=== PATIENT | male | born 1950 | race Caucasian/White ===

== ENCOUNTER 2019-04-07 08:40 | Emergency (ER) | payer MEDICARE, SELFPAY ==
[2019-04-07 08:53] VITALS: BP 147/77; PULSE 77; RESP 20; TEMP 36.8; O2SAT 100
--- NOTE | 2019-04-07 09:04 | ED.GENADUL_ITS ---
Discharge Plan Disposition Patient Disposition: HOME Condition: Stable Discharge Details Chief Complaint: Nausea/Vomit/Diar Clinical Impression: Nausea and vomiting, Dehydration Primary Care Provider: Aquiles Roca ED Provider: Aquiles Alexander Home Meds and New Rx's Prescriptions: New ondansetron 4 mg tablet,disintegrating 4 mg PO TID PRN (Reason: nausea and vomiting) 5 Days Qty: 30 RF: 0 Continued multivitamin [Daily Multi-Vitamin] 1 EACH tablet 1 tab PO DAILY RF: 0 nifedipine 30 MG tablet extended release 24hr 30 mg PO DAILY RF: 0 meloxicam 7.5 MG tablet RF: 0 aspirin 81 MG tablet,chewable 81 mg PO DAILY RF: 0 atenolol 50 MG tablet 50 mg PO DAILY RF: 0 rosuvastatin [Crestor] 40 MG tablet 40 mg PO DAILY RF: 0 fish oil-dha-epa 1 EACH capsule 1 tab PO DAILY RF: 0 Discharge Instructions Instructions: Acute Nausea and Vomiting (ED) Additional Instructions: follow up with your primary care provider within a week. if you feel you are worsening, have new symptoms such as severe chest pain or persistent vomit return to the emergency department Medical Decision Making 68 yo male with hx of cad s/p cabg x3 per pt yeras ago, htn, who comes in with nasuea and vomit since Thursday. Denies fevers or new foods. he has also had intermittent general abdominal pain with cramping, denies pain now but does have some epigastric tenderness on exam. Denies chest pain or pressure but does have some mild shortness of breath, is speaking in full sentences with clear lungs. Also notes a mild frontal headache, no fevers or menigismus to suggest drug enforcement agent infection and not worst of his life and slowly has worsened so doubt sah. Given the n/v and headache will image to eval for sdh and evaluate for possible acs and sbo with las ekg and imaging and monitor. Has no evidence of dvt and no tachycardia or hypoxia so doubt pe and normal vascular exam without tearing back pain so doubt dissection labs unremarkable, he feels much better after zofran/ivf and no longer has a headache and is declining head ct at this time given it is gone and it was mild which I feel is reasonable given low suspicion for sdh or ich. Awaiting ct abd/pelvis, still has mild epigastric pain ct unremarkable per Dr. Shah, has a known aaa without rupture and he [facility] he is tolerating PO and feels better without abdominal pain. Feel he is stable for outpatient management, return precautions given Differential Diagnosis gastroenteritis, sbo, acs, sdh Medical Records Medical records reviewed: Yes I reviewed the patient's medical records. Imaging Data Radiologic Study: Attestation: I personally reviewed and interpreted this imaging study as follows: Imaging: CT Scan Radiologist's impression: no acute findings per Dr. Shah Radiologic Study #2: Attestation: I personally reviewed and interpreted this imaging study as follows: Imaging: X-Ray Radiologist's impression: Exam(s) a RAD:XR chest 2V PA & lateral SYMPTOMS/DIAGNOSIS: SHORT OF BREATH AP AND LATERAL CHEST: The lungs are free of infiltrate. There is no pleural effusion. The heart is not enlarged in this patient who is status post CABG. The hilar structures, mediastinum and tracheal air column are intact. SUMMARY: No evidence of acute cardiopulmonary disease. Ordered By: Aquiles Alexander M.D. CC: Dictated By: Alison Shah M.D. 04/07/19 1113 Lab Data Lab results reviewed: Yes I reviewed the patient's lab results. ECG Data Attestation: I personally reviewed and interpreted this ECG (s) as follows: Prior ECG tracings: not available for review Interpretation: sinus rhythm, rate of 60, pr 174, qtc 420 HPI General Mode of arrival: ambulatory . Date/Time Provider Initiated Documentation: 04/07/19 08:57 . Limitations to Documentation: no limitations . Information obtained by: patient . History of Present Illness 68 year old M presents to the emergency department with the chief complaint of n/v, described as moderate, Patient started experiencing this day(s) (3) and it has been constant. No relieving factors improve symptom(s), No exacerbating factors reported . Patient notes headaches. Patient did receive the following treatments prior to arrival, none Related Data Home Medications Medication Instructions Recorded Confirmed aspirin 81 mg PO DAILY 02/09/17 02/09/17 atenolol 50 mg PO DAILY 02/09/17 02/09/17 fish oil-dha-epa 1 tab PO DAILY 02/09/17 02/09/17 meloxicam 02/09/17 multivitamin [Daily Multi-Vitamin] 1 tab PO DAILY 02/09/17 02/09/17 nifedipine 30 mg PO DAILY 02/09/17 02/09/17 rosuvastatin [Crestor] 40 mg PO DAILY 02/09/17 02/09/17 ondansetron 4 mg PO TID PRN 5 Days #30 tab 04/07/19 Previous Rx's Medication Instructions Recorded ondansetron 4 mg PO TID PRN 5 Days #30 tab 04/07/19 Allergies Allergy/AdvReac Type Severity Reaction Status Date / Time Penicillins Allergy Intermediate Hives Unverified 02/09/17 12:51 oxycodone Allergy Unverified 02/09/17 12:51 General Stated Complaint: Nausea/Vomit/Diar YURI: 3 Review of Systems Review of Systems All systems reviewed & are unremarkable except as noted in HPI and below Constitutional Denies chills, Denies fever(s) and Denies weakness Cardiovascular Denies chest pain and Denies dyspnea Respiratory Denies cough and Denies dyspnea Genitourinary Denies dysuria Musculoskeletal Denies joint swelling Integumentary/Breasts Denies rash Neurologic Denies weakness PFSH Social History Do you feel safe in your relationship?: Yes Exam Const General: no acute distress Orientation: alert HENMT Head: normal to inspection Ears: external ears normal General nose exam: external nose normal Mouth: moist mucous membranes Eyes General: appearance normal, both eyes and all related structures Neck Neck: normal visual inspection Resp Effort & Inspection: normal respiratory effort and able to speak in complete sentences Cardio Rate: regular rate GI Palpation: soft Skin General skin exam: no rashes or lesions noted Neuro General: alert and oriented x3 Extrem General: normal to inspection Psych Mental Status: mental status grossly normal Course Vital Signs Temperature 36.8 C 04/07/19 08:53 Pulse 77 04/07/19 08:53 Respiratory Rate 20 04/07/19 08:53 Blood Pressure 147/77 H 04/07/19 08:53 Pulse Oximetry 100 04/07/19 08:53 Temperature 36.8 C 04/07/19 08:53 Temperature Source Skin 04/07/19 08:53 Pulse 77 04/07/19 08:53 Respiratory Rate 20 04/07/19 08:53 Blood Pressure 147/77 H 04/07/19 08:53 Blood Pressure Position Sitting 04/07/19 08:53 Pulse Oximetry 100 04/07/19 08:53 Oxygen Delivery Method Room Air 04/07/19 08:53 Oxygen Flow Rate 0 04/07/19 08:53 Pain Level 4 04/07/19 08:53
[2019-04-07 09:36] LABS: Abs Immature Grans 0.01 k/cumm (0.0-0.09); Absolute Basophil Count 0.02 k/cumm (0.0-0.2); Absolute Eosinophil Count 0.04 k/cumm (0.0-0.7); Absolute Lymphocyte Count 2.04 k/cumm (1.2-3.4); Basophils % 0.2; Eosinophils % 0.4; HCT 46.1 % (40.0-50.0); HGB 16.3 g/dL (13.5-17.5); Immature Grans % 0.1; Lymphocytes % 18.2; Mean Corp. HGB Concentration 35.4 g/dL (32.0-36.0); Mean Corpuscular Hemoglobin 31.7 pg (27.0-33.0); Mean Corpuscular Volume 89.7 fL (80-95); Mean Platelet Volume 10.6 fL (8.0-11.0); Monocytes % 6.3; Neutrophils % 74.8; Platelet Count 198 x1000/uL (130-400); RBC 5.14 m/cumm (4.50-6.00); RBC Distribution Width 13.2 % (11.8-14.1); White Blood Cell Count 11.19 k/cumm (4.4-10.8)
[2019-04-07 09:39] LABS: Absolute Neutrophil Count 8.37 k/cumm (1.2-6.7)
[2019-04-07 09:44] LABS: PTT Activated 22.7 sec (21.0-31.4); Prothrombin Time 9.5 sec (9.3-11.0)
[2019-04-07 09:54] LABS: ALT 25 U/L (12-78); AST 20 U/L (15-37); Albumin 3.9 g/dL (3.4-5.0); Alkaline Phosphatase 80 U/L (46-116); BUN 26 mg/dL (7-18); Bilirubin, Total 0.8 mg/dL (0.2-1.0); CREATININE 0.92 mg/dL (0.70-1.30); Calcium 9.7 mg/dL (8.5-10.1); Chloride 98 mmol/L (98-107); Glucose 118 mg/dL (70-100); Lipase 74 U/L (73-393); Potassium 4.1 mmol/L (3.5-5.1); Sodium 136 mmol/L (136-145); Total Protein 7.4 g/dL (6.4-8.2)
[2019-04-07 09:56] LABS: Troponin I < 0.02 ng/mL (0.00-0.06)
--- NOTE | 2019-04-07 11:10 | DI.RAD_ITS ---
SYMPTOMS/DIAGNOSIS: SHORT OF BREATH AP AND LATERAL CHEST: The lungs are free of infiltrate. There is no pleural effusion. The heart is not enlarged in this patient who is status post CABG. The hilar structures, mediastinum and tracheal air column are intact. SUMMARY: No evidence of acute cardiopulmonary disease.
--- NOTE | 2019-04-07 11:29 | DI.CT_ITS ---
SYMPTOMS/DIAGNOSIS: NAUSEA, VOMITING, ABD PAIN CT OF THE ABDOMEN AND PELVIS: The study was conducted according to the usual protocol with an intravenous administration of 100 cc's f Omnipaque 350. The lung bases are unremarkable. Multiple small cysts are identified in the liver. The gallbladder is intact. No gallstones are seen. There is no evidence of ductal dilatation. The pancreas and spleen are unremarkable. Bilateral renal cysts are demonstrated. There is no evidence of nephrolithiasis. There is no evidence of hydronephrosis. The adrenals are normal. There is no evidence of bowel obstruction. There is nothing to suggest an acute appendix. There is no evidence of free air or free fluid in the intraperitoneal space. The bladder is normal. There are calcifications in the prostate. The reproductive organs appear otherwise unremarkable. There are atherosclerotic changes involving the aorta with a maximal diameter of approximately 3.1 cm. Degenerative changes involving the lumbar spine are identified most advanced at L 4 - 5 and L 5 - S 1 where narrowed vacuum discs and prominent hypertrophic spurring are evident. SUMMARY: No evidence of an acute abdomen. Note is made of aneurysmal dilatation of the distal abdominal aorta with a maximal transverse diameter measuring up to approximately 3.1 - 3.2 cm.
[2019-04-07] MEDS: Omnipaque 350 MG/ML 100 ML BTL IJ (11:32)
[2019-04-07 12:10] VITALS: BP 142/68; PULSE 63; RESP 16; O2SAT 98
[2019-04-07 12:19] VITALS: BP 142/68; PULSE 63; RESP 16; TEMP 36.6; O2SAT 98
== END 2019-04-07 12:19 | disposition home or self-care (01) ==
PROVIDERS: Emergency Provider Emergency Medicine; PCP Internal Medicine
DX: R11.2 Nausea with vomiting, unspecified (principal); R10.13 Epigastric pain; R51 Headache; R06.02 Shortness of breath; E86.0 Dehydration; I10 Essential (primary) hypertension; Z95.1 Presence of aortocoronary bypass graft
CPT/HCPCS: 36415; 80053; 83690; 93005; 96360; 99285; 71046; 74177; 84484; 85025; 85610; 85730; 93010; J3490

== ENCOUNTER 2020-04-02 10:41 | Outpatient (CLI) | payer MEDICARE, SELFPAY ==
[2020-04-03 18:01] LABS: COVID-19 RT-PCR Result NEGATIVE (Negative)
== END 2020-04-02 11:01 ==
PROVIDERS: PCP Internal Medicine; Visit Provider Physician Assistant Medical
DX: Z03.818 Encounter for observation for suspected exposure to other biological agents ruled out (principal)
CPT/HCPCS: U0003

== ENCOUNTER 2022-02-11 11:14 | Emergency (ER) | payer MEDICARE, SELFPAY ==
[2022-02-11 11:36] VITALS: BP 140/68; PULSE 60; RESP 16; TEMP 36; O2SAT 98
--- NOTE | 2022-02-11 12:15 | RT.EKG_ITS ---
APPROVED REPORT Exam: Resting ECG Reason for Exam: abdominal pain Patient Location: E HR:55 bpm ECG Measurements Heart Rate 55 AXIS GA 172 P 34 QRSd 99 QRS 64 QT 407 T 44 QTc 389 Conclusion Sinus bradycardia...rate< 60. Sinus. Normal axis. No STEMI. No significant change from previous EKG. I have reviewed and interpreted ECG and agree with software generated interpretation.
--- NOTE | 2022-02-11 12:15 | DI.CT_ITS ---
Exam(s) CT ABDOMEN PELVIS W EXAM: CT ABDOMEN PELVIS W CLINICAL HISTORY: abdominal pain, persistent diarrhea, bladder ca TECHNIQUE: Imaging Protocol: Axial computed tomography images with coronal and sagittal reformatted images were created and reviewed CONTRAST MATERIAL: Intravenous: Omnipaque 350 Contrast volume:100 mL Oral: No COMPARISON: CT CT ABDOMEN PELVIS W from 04/07/2019 FINDINGS: The examination is limited due to patient motion artifact. ABDOMEN: Lung Bases: Normal where visualized. Liver: Normal density. Several hepatic cysts are present. No suspicious hepatic masses are seen. Portal, Superior Mesenteric, and Splenic Veins: Unremarkable. Gallbladder and Biliary Tract: No radiodense calculus or dilation. Pancreas: Normal density, no abnormal calcifications or inflammatory process. Spleen: Normal. Adrenals: No masses seen. Kidneys: Normal size, contour and axis. No radiodense stones or obstructive uropathy. Bilateral renal cysts are present. No follow-up is recommended. Abdominal Aorta: There is a stable 3.2 cm infrarenal abdominal aortic aneurysm. Atherosclerosis is p resent. Bowel: No obstruction or bowel wall thickening. No evidence of appendicitis. Peritoneal Cavity: No ascites, collection or mesenteric inflammatory response. No free air. Lymph Nodes: Within normal limits. Bones: Within normal limits for the patient's age. 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 Mild retrolisthesis of L4 on L5 is also noted. Soft Tissues: Unremarkable. PELVIS: Bladder: Symmetric distention, no gross wall thickening. Reproductive Organs: Unremarkable as visualized. Lymph Nodes: Within normal limits. Bones: Within normal limits for the patient's age. IMPRESSION: 1. No acute abdominal or pelvic process. 2. Results of this exam have been verbally communicated with provider. RADIATION DOSE DELIVERED: 1,021.1mGy.cm Total DLP DATA REPOSITORY: All CT scans at this facility are submitted to the National Radiology Data Registry (NRDR) Dose Index Registry (DIR) with the [employer] (A[employer]). RADIATION OPTIMIZATION: All CT scans at this facility use at least one of these dose optimization te chniques: automated exposure control; mA and/or kV adjustment per patient size (includes targeted exa ms where dose is matched to clinical indication); or iterative reconstruction.
[2022-02-11 12:40] LABS: Abs Immature Grans 0.01 10^3/uL (0.0-0.06); Absolute Basophil Count 0.04 10^3/uL (0.0-0.2); Absolute Eosinophil Count 0.45 10^3/uL (0.0-0.7); Absolute Lymphocyte Count 1.93 10^3/uL (1.2-3.4); Absolute Neutrophil Count 2.48 10^3/uL (1.2-6.7); Basophils % 0.7; Eosinophils % 7.9; HCT 43.6 % (40.0-50.0); HGB 14.5 g/dL (13.5-17.5); Immature Grans % 0.2; Lymphocytes % 33.8; MCH 31.3 pg (27.0-33.0); MCHC 33.3 % (32.0-36.0); MCV 94.2 fL (80-95); MPV 9.8 fL (8.0-11.0); Neutrophils % 43.4; Nucleated RBC 0 %; Platelet Count 210 10^3/uL (130-400); RBC 4.63 10^6/uL (4.36-5.78); RDW 13.2 % (11.8-14.1); WBC 5.71 10^3/uL (4.4-10.8)
[2022-02-11] MEDS: Ondansetron 4 MG/2 ML VIAL IVP (12:49)
[2022-02-11] MEDS: Lactated Ringers 1,000 ML 1000 ML IV (12:49)
[2022-02-11 12:57] LABS: Bilirubin Negative (Negative); Blood Trace-intact (Negative); Clarity Clear (Clear); Glucose Negative (Negative); Ketones Negative (Negative); Leukocyte Esterase Negative (Negative); Nitrite Negative (Negative); Specific Gravity >= 1.030 (1.005-1.025); Urobilinogen 0.2 EU/dL (Up TO 0.2); pH 5.5 (5-8)
[2022-02-11 13:00] LABS: ALT 50 U/L (16-63); AST 32 U/L (15-37); Albumin 3.4 g/dL (3.4-5.0); Alkaline Phosphatase 74 U/L (46-116); Anion Gap 6.7 mmol/L (3-11); BUN 29 mg/dL (7-18); Bilirubin, Total 0.2 mg/dL (0.2-1.0); CO2 24.3 mmol/L (21.0-32.0); CREATININE 1.1 mg/dL (0.70-1.30); Chloride 107 mmol/L (98-107); Glucose 96 mg/dL (74-106); Lipase 54 U/L (73-393); Potassium 4.6 mmol/L (3.5-5.1); Sodium 138 mmol/L (136-145); Total Protein 7.5 g/dL (6.4-8.2)
[2022-02-11 13:06] LABS: Bacteria Negative HPF (Negative); C & S Indicated? No; Crystals Negative HPF (Negative); Epithelial Cells Rare HPF (Negative); Mucus Negative (Negative); WBC 0-2 HPF (0-5)
[2022-02-11] MEDS: Omnipaque 350 MG/ML 100 ML BTL IJ (13:38)
--- NOTE | 2022-02-11 14:31 | W.ED.GENAD ---
Discharge Plan Disposition Patient Disposition: HOME Condition: Stable Discharge Details Clinical Impression: Diarrhea, Abdominal pain Primary Care Provider: Aquiles Roca ED Provider: Kassi Altamirano Home Meds and New Rx's Prescriptions: New ondansetron 4 mg tablet,disintegrating 4 mg PO Q8H PRN3 Days Qty: 10 0RF Continued multivitamin [Daily Multi-Vitamin] 1 EACH tablet 1 tab PO DAILY 0RF nifedipine 30 MG tablet extended release 24hr 30 mg PO DAILY 0RF meloxicam 7.5 MG tablet 15 mg PO DAILY 0RF Label Comments: not sure of dose. will picking supervisor med today. aspirin 81 MG tablet,chewable 81 mg PO DAILY 0RF atenolol 50 MG tablet 50 mg PO DAILY 0RF fish oil-dha-epa 1 EACH capsule 1 tab PO DAILY 0RF atorvastatin 80 mg Tablet 80 mg PO DAILY 0RF Discharge Instructions Instructions: Acute Diarrhea (ED), Abdominal Pain (ED) Additional Instructions: You may take Imodium as needed, do not take for more than 3 days straight Increase fluid hydration, you may try drinking only tolerate Gatorade daily Make sure you are drinking at least 8 ounces of water 8 times daily Take Zofran as needed for nausea and vomiting Referrals: Aquiles Roca [Primary Care Provider] - Discharge Data Discharge Date/Time-TO BE ENTERED AT DEPARTURE: 02/11/22 15:[address] abdomen, no mass or acute abnormality Diarrhea warrants stools, patient unable to give specimen in the emergency department sent with outpatient stool order set CT results discussed with the radiologist Dehydration, BUN 29, received 1 L of normal saline Able to tolerate p.o. Patient afebrile and nontoxic with reassuring labs, will continue to hydrate at home Antiemetics given We will take Imodium as needed and return should he have new or worsening complaints Patient clinically dehydrated, received 1 L normal saline drinking fluid in the room, BUN of 29, the remainder of labs are all within normal limits Patient was unable to supply a stool specimen was sent home with supplies to do so including outpatient lab order sheet Feels comfortable discharge home, able to tolerate p.o. Has close outpatient follow-up with PCP Return precautions discussed and patient states understanding CT abdomen pelvis does not show acute abnormality per radiology interpretation in my review Medical Records Medical records reviewed: Yes I reviewed the patient's medical records. Lab Data Lab results reviewed: Yes I reviewed the patient's lab results. HPI General Date/Time Provider Initiated Documentation: 02/11/22 12:09. HPI Narrative: This 71-year-old male history of bladder cancer presents for report of nausea, vomiting, diarrhea and subjective fevers. Negative flu and Covid express care. Denies any known sick contacts. Denies any cough or shortness of breath. Denies any chest pain. Has cramping in his abdomen, almost always prior to bowel movements. States pain is partially alleviated post bowel movement. Denies any blood in stool. Had nausea without vomiting today. Had arthralgias initially presentation. Denies any new medications. Denies any recent antibiotic use. Denies any exotic travel. Denies any urinary component to symptoms. Is not currently on chemotherapy last intrathecal chemo was in September. Related Data Home Medications Medication Instructions Recorded Confirmed aspirin 81 mg chewable tablet 81 mg PO DAILY 02/09/17 02/11/22 atenolol 50 mg tablet 50 mg PO DAILY 02/09/17 02/11/22 fish oil-dha-epa 1,200 mg-144 1 tab PO DAILY 02/09/17 02/11/22 mg-216 mg capsule meloxicam 7.5 mg tablet 15 mg PO DAILY 02/09/17 02/11/22 multivitamin (Daily Multi-Vitamin) 1 tab PO DAILY 02/09/17 02/11/22 nifedipine 30 mg tablet,extended 30 mg PO DAILY 02/09/17 02/11/22 release 24 hr atorvastatin 80 mg tablet 80 mg PO DAILY 02/11/22 02/11/22 ondansetron 4 mg disintegrating 4 mg PO Q8H PRN 3 Days #10 tab 02/11/22 tablet Previous Rx's Medication Instructions Recorded ondansetron 4 mg disintegrating 4 mg PO Q8H PRN 3 Days #10 tab 02/11/22 tablet Allergies Allergy/AdvReac Type Severity Reaction Status Date / Time Penicillins Allergy Intermediate Hives Unverified 02/11/22 11:43 oxycodone Allergy Unverified 02/11/22 11:43 General Stated Complaint: Nausea/Vomit/Diar YURI: 3 Review of Systems All systems reviewed & are unremarkable except as noted in HPI and below PFSH All Active Problems (Updated 02/11/22 @ 14:41 by ELZA Rivas) Diarrhea (Acute) Abdominal pain (Acute) Social History Smoking/Tobacco Use Status: Current every day Tobacco Type: cigarettes Smoking risk assessment performed?: Yes Alcohol Intake: never Substance use type: does not use Do you feel safe at home: Yes Do you feel safe in your relationship?: Yes Exam Const General: cooperative, comfortable and no acute distress HENMT Other: Moist mucous membranes Eyes Pupils: PERRL Chest Chest: normal inspection of the chest Resp Effort & Inspection: normal respiratory effort Auscultation: clear to auscultation bilaterally Cardio Rate: regular rate Rhythm: regular rhythm Heart Sounds: no murmurs GI Inspection: normal to inspection Other: Mild suprapubic tenderness, no rebound or guarding Skin General skin exam: no rashes or lesions noted Neuro General: patient alert and patient oriented x3 Extrem Other: Distal pulses intact Course Vital Signs Vital signs: Vital Signs Temperature 36 C L 02/11/22 11:36 Pulse 60 02/11/22 11:36 Respiratory Rate 16 02/11/22 11:36 Blood Pressure 140/68 02/11/22 11:36 Pulse Oximetry 98 02/11/22 11:36 Temperature 36 C L 02/11/22 11:36 Temperature Source Skin 02/11/22 11:36 Pulse 60 02/11/22 11:36 Respiratory Rate 16 02/11/22 11:36 Respiratory Effort 02/11/22 11:36 Blood Pressure 140/68 02/11/22 11:36 Blood Pressure Position Sitting 02/11/22 11:36 Pulse Oximetry 98 02/11/22 11:36 Oxygen Delivery Method Room Air 02/11/22 11:36 Oxygen Flow Rate 0 02/11/22 11:36 Pain Level 0 02/11/22 11:36 Lab/Test Results Lab/Test Results: Laboratory Tests Range/Units 02/11/22 02/11/22 02/11/22 12:34 12:34 12:43 WBC (4.4-10.8) 10^3/uL 5.71 RBC (4.36-5.78) 10^6/uL 4.63 Hgb (13.5-17.5) g/dL 14.5 Hct (40.0-50.0) % 43.6 MCV (80-95) fL 94.2 MCH (27.0-33.0) pg 31.3 MCHC (32.0-36.0) % 33.3 RDW (11.8-14.1) % 13.2 Plt Count (130-400) 10^3/uL 210 MPV (8.0-11.0) fL 9.8 Immature Gran % 0.2 Neutrophils % 43.4 Lymphocytes % 33.8 Monocytes % 14.0 Eosinophils % 7.9 Basophils % 0.7 Nucleated RBC % % 0 Absolute Neutrophils (1.2-6.7) 10^3/uL 2.48 Absolute Lymphocytes (1.2-3.4) 10^3/uL 1.93 Absolute Monocytes (0.1-0.8) 10^3/uL 0.80 Absolute Eosinophils (0.0-0.7) 10^3/uL 0.45 Absolute Basophils (0.0-0.2) 10^3/uL 0.04 Sodium (136-145) mmol/L 138 Potassium (3.5-5.1) mmol/L 4.6 Chloride (98-107) mmol/L 107 Carbon Dioxide (21.0-32.0) mmol/L 24.3 Anion Gap (3-11) mmol/L 6.7 BUN (7-18) mg/dL 29 H Creatinine (0.70-1.30) mg/dL 1.1 Estimated GFR/1.73 m2 (mL/min/1.73m2) >= 60.00 Glucose (74-106) mg/dL 96 Calcium (8.5-10.1) mg/dL 9.0 Magnesium (1.8-2.4) mg/dL 2.0 Total Bilirubin (0.2-1.0) mg/dL 0.2 AST (15-37) U/L 32 ALT (16-63) U/L 50 Alkaline Phosphatase (46-116) U/L 74 Total Protein (6.4-8.2) g/dL 7.5 Albumin (3.4-5.0) g/dL 3.4 Lipase (73-393) U/L 54 Urine Color (Yellow) Yellow Urine Clarity (Clear) Clear Urine pH (5-8) 5.5 Ur Specific [place] (1.005-1.025) >= 1.030 H Urine Protein (Negative) mg/dL Negative Urine Ketones (Negative) mg/dL Negative Urine Blood (Negative) Trace-intact H Urine Nitrite (Negative) Negative Urine Bilirubin (Negative) Negative Urine Urobilinogen (Up TO 0.2) EU/dL 0.2 Ur Leukocyte Esterase (Negative) Negative Urine RBC (0-2) HPF 5-10 H Urine WBC (0-5) HPF 0-2 Ur Epithelial Cells (Negative) HPF Rare Urine Crystals (Negative) HPF Negative Urine Bacteria (Negative) HPF Negative Urine Casts (Negative) LPF >50 Hyaline Urine Mucus (Negative) Negative Ur Culture Indicated? No Urine Glucose (Negative) mg/dL Negative
== END 2022-02-11 15:04 | disposition home or self-care (01) ==
PROVIDERS: Emergency Provider Physician Assistant; PCP Internal Medicine
DX: R19.7 Diarrhea, unspecified (principal); R11.2 Nausea with vomiting, unspecified; R10.9 Unspecified abdominal pain; R50.9 Fever, unspecified
CPT/HCPCS: 80053; 83690; 93005; 96361; 96374; 99285; 74177; 81003; 81015; 83735; 85025; 93010; 99284; J2405; J3490

== ENCOUNTER 2022-02-12 14:46 | Outpatient (REF) | payer MEDICARE, SELFPAY ==
[2022-02-12 22:50] LABS: C Diff PCR Negative (Negative)
[2022-02-13 10:35] LABS: Salmonella PCR Negative (Negative); Shiga Toxin PCR Negative (Negative); Shigella/Enteroinvasive Ecoli Negative (Negative)
[2022-02-13 13:32] LABS: Campylobacter PCR Positive (Negative)
== END 2022-02-12 14:47 | disposition home or self-care (01) ==
LOC: LBN 14:46
PROVIDERS: PCP Internal Medicine; Visit Provider Internal Medicine
DX: R19.7 Diarrhea, unspecified (principal)
CPT/HCPCS: 87493; 87505; 87177

== ENCOUNTER 2022-02-21 12:35 | Inpatient (IN) | payer MEDICARE, SELFPAY ==
[2022-02-21] VITALS (24 sets, daily range): BP systolic 125–153; BP diastolic 52–75; PULSE 54–71; RESP 14–21; TEMP 36.5–36.9; O2SAT 93–98
--- NOTE | 2022-02-21 13:15 | RT.EKG_ITS ---
APPROVED REPORT Exam: Resting ECG Reason for Exam: Chest Pain Patient Location: E HR:61 bpm ECG Measurements Heart Rate 61 AXIS MA 175 P 27 QRSd 103 QRS 65 QT 402 T 57 QTc 405 Conclusion Sinus rhythm...normal P axis, V-rate 60- 99. Sinus. Normal axis. No STEMI. I have reviewed and interpreted ECG and agree with software generated interpretation.
--- NOTE | 2022-02-21 13:34 | W.ED.GENAD ---
Discharge Plan Disposition Patient Disposition: [facility] INPATIENT Condition: Stable Discharge Details Clinical Impression: GI bleed, Abdominal pain Admit Date/Time: 02/21/22 15:55 Admit Provider: Leandra Bello Attending Provider: Leandra Bello Primary Care Provider: Aquiles Roca ED Provider: Kadie Raymundo Discharge Data Discharge Date/Time-TO BE ENTERED AT DEPARTURE: 02/21/22 16:59 Medical Decision Making 71-year-old male presents to the ER with complaint of vomiting which began last night. He reports this morning at 11 AM he vomited what looked like blood he describes dark emesis about a tablespoon. This is associated with midepigastric abdominal pain, but he called describes as heartburn which radiates into his back and both sides of his ribs. He denies any dizziness denies any tarry stools he does have a history of triple bypass in 1988, hypertension, hyperlipidemia, and bladder cancer with he is being seen for at the [facility] and taking chemo treatments for. He does take a baby aspirin every day. Work-up ordered including CBC, CMP, type and screen, serial troponins, EKG, lipase will order CT chest abdomen pelvis pending labs CBC shows slight leukocytosis with white blood cell count 11.94, hemoglobin 12.8 hematocrit 38.5, sodium 138 potassium 4.2, BUN 22 creatinine 0.9 GFR greater than 60 glucose 112 1534: Repeat CBC ordered to eval H&H. Hemoglobin 11.6 and hematocrit 34.8 which is down from 12.[address] chest abdomen pelvis shows nothing acute per radiologist read. Stable cyst in the kidney and liver, no PE, stable 3 cm abdominal aortic aneurysm 1547: Will page surgery on-call and consult with them. Will seek admission for further eval of GI bleed, cardiac rule out. Protonix 40 mg IV ordered. 1555: Discussed patient case in details with Dr. Bello she agrees to accept patient for observation and plan for an endoscopy in the a.m. Discussed plan of care with patient who verbalizes understanding and is in agreement with plan. Patient remained stable throughout stay and was hemodynamically stable, alert and oriented at the time of this dictation. This text was generated using [employer] system, please disregard any oddities of phrase or misspellings. Medical Records Medical records reviewed: Yes I reviewed the patient's medical records. Imaging Data Radiologic Study: Radiologist's impression: CT chest rule out PE, CT abdomen pelvis with contrast: IMPRESSION: 1. No evidence of acute pulmonary emboli nor pulmonary infarction. 2. There are no pleural effusions.Mild increased markings in the dependent aspects of the lung bases. 3. Atherosclerotic abdominal aorta with a fusiform infrarenal abdominal aortic aneurysm with maximum external diameter of 3 centimeters again noted. 4. Benign cysts in the kidneys and liver again noted. No solid renal masses. No calculi. No hydronephrosis. 5. 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 Also advanced disc space narrowing at this level as well as at L4-5 Lab Data Lab results reviewed: Yes I reviewed the patient's lab results. Lab results narrative: Laboratory Tests Range/Units 02/21/22 02/21/22 02/21/22 13:25 13:25 13:25 WBC (4.4-10.8) 10^3/uL 11.94 H RBC (4.36-5.78) 10^6/uL 4.13 L Hgb (13.5-17.5) g/dL 12.8 L Hct (40.0-50.0) % 38.5 L MCV (80-95) fL 93.2 MCH (27.0-33.0) pg 31.0 MCHC (32.0-36.0) % 33.2 RDW (11.8-14.1) % 13.5 Plt Count (130-400) 10^3/uL 221 MPV (8.0-11.0) fL 10.2 Immature Gran % 0.3 Neutrophils % 81.2 Lymphocytes % 11.3 Monocytes % 5.1 Eosinophils % 1.8 Basophils % 0.3 Nucleated RBC % % 0 Absolute Neutrophils (1.2-6.7) 10^3/uL 9.70 H Absolute Lymphocytes (1.2-3.4) 10^3/uL 1.35 Absolute Monocytes (0.1-0.8) 10^3/uL 0.61 Absolute Eosinophils (0.0-0.7) 10^3/uL 0.21 Absolute Basophils (0.0-0.2) 10^3/uL 0.04 PT (9.3-11.0) sec 9.7 INR (0.9-1.1) 1.0 Sodium (136-145) mmol/L 138 Potassium (3.5-5.1) mmol/L 4.2 Chloride (98-107) mmol/L 105 Carbon Dioxide (21.0-32.0) mmol/L 26.1 Anion Gap (3-11) mmol/L 6.9 BUN (7-18) mg/dL 22 H Creatinine (0.70-1.30) mg/dL 0.9 Estimated GFR/1.73 m2 (mL/min/1.73m2) >= 60.00 Glucose (74-106) mg/dL 112 H Calcium (8.5-10.1) mg/dL 8.5 Magnesium (1.8-2.4) mg/dL 2.0 Total Bilirubin (0.2-1.0) mg/dL 0.6 AST (15-37) U/L 17 ALT (16-63) U/L 31 Alkaline Phosphatase (46-116) U/L 67 Troponin I (<or=60) ng/L < 50 Total Protein (6.4-8.2) g/dL 6.5 Albumin (3.4-5.0) g/dL 3.2 L Lipase (73-393) U/L 57 Patient ABO/Rh Antibody Screen Range/Units 02/21/22 02/21/22 13:25 15:15 WBC (4.4-10.8) 10^3/uL 10.93 H RBC (4.36-5.78) 10^6/uL 3.76 L Hgb (13.5-17.5) g/dL 11.6 L Hct (40.0-50.0) % 34.8 L MCV (80-95) fL 92.6 MCH (27.0-33.0) pg 30.9 MCHC (32.0-36.0) % 33.3 RDW (11.8-14.1) % 13.5 Plt Count (130-400) 10^3/uL 200 MPV (8.0-11.0) fL 10.2 Immature Gran % Neutrophils % Lymphocytes % Monocytes % Eosinophils % Basophils % Nucleated RBC % % Absolute Neutrophils (1.2-6.7) 10^3/uL Absolute Lymphocytes (1.2-3.4) 10^3/uL Absolute Monocytes (0.1-0.8) 10^3/uL Absolute Eosinophils (0.0-0.7) 10^3/uL Absolute Basophils (0.0-0.2) 10^3/uL PT (9.3-11.0) sec INR (0.9-1.1) Sodium (136-145) mmol/L Potassium (3.5-5.1) mmol/L Chloride (98-107) mmol/L Carbon Dioxide (21.0-32.0) mmol/L Anion Gap (3-11) mmol/L BUN (7-18) mg/dL Creatinine (0.70-1.30) mg/dL Estimated GFR/1.73 m2 (mL/min/1.73m2) Glucose (74-106) mg/dL Calcium (8.5-10.1) mg/dL Magnesium (1.8-2.4) mg/dL Total Bilirubin (0.2-1.0) mg/dL AST (15-37) U/L ALT (16-63) U/L Alkaline Phosphatase (46-116) U/L Troponin I (<or=60) ng/L Total Protein (6.4-8.2) g/dL Albumin (3.4-5.0) g/dL Lipase (73-393) U/L Patient ABO/Rh O Positive Antibody Screen NEGATIVE HPI General Mode of arrival: ambulatory. Date/Time Provider Initiated Documentation: 02/21/22 12:53. Limitations to Documentation: no limitations. Information obtained by: patient, RN notes reviewed and old records reviewed. HPI Narrative: 71-year-old male presents to the ER with complaint of vomiting which began last night. He reports this morning at 11 AM he vomited what looked like blood he describes dark emesis about a tablespoon. This is associated with midepigastric abdominal pain, but he called describes as heartburn which radiates into his back and both sides of his ribs. He denies any dizziness denies any tarry stools he does have a history of triple bypass in and bladder cancer with he is being seen for at the [facility] and taking chemo treatments for. He does take a baby aspirin every day. Related Data Home Medications Medication Instructions Recorded Confirmed aspirin 81 mg chewable tablet 81 mg PO DAILY 02/09/17 02/21/22 atenolol 50 mg tablet 50 mg PO DAILY 02/09/17 02/21/22 fish oil-dha-epa 1,200 mg-144 1 tab PO DAILY 02/09/17 02/21/22 mg-216 mg capsule meloxicam 7.5 mg tablet 15 mg PO DAILY 02/09/17 02/21/22 multivitamin (Daily Multi-Vitamin) 1 tab PO DAILY 02/09/17 02/21/22 nifedipine 30 mg tablet,extended 30 mg PO DAILY 02/09/17 02/21/22 release 24 hr atorvastatin 80 mg tablet 80 mg PO DAILY 02/11/22 02/21/22 Allergies Allergy/AdvReac Type Severity Reaction Status Date / Time Penicillins Allergy Intermediate Hives Unverified 02/21/22 16:53 oxycodone Allergy Unverified 02/21/22 16:53 General Stated Complaint: GI Bleed YURI: 2 Review of Systems All systems reviewed & are unremarkable except as noted in HPI and below Constitutional Constitutional: Reports as per HPI Cardiovascular Cardiovascular: Reports chest pain, Reports chest pain at rest (11/25), Denies diaphoresis, Denies syncope, Denies rapid heart rate and Denies dyspnea Respiratory Respiratory: Denies dyspnea Gastrointestinal Gastrointestinal: Reports as per HPI, Reports abdominal pain, Denies melena, Denies diarrhea, Reports nausea, Reports vomiting and Reports hematemesis (Describes as dark, approximately a tablespoon ) Genitourinary Genitourinary: Reports as per HPI (Hx of bladder CA) Neurologic Neurologic: Denies syncope PFSH All Active Problems (Updated 02/21/22 @ 15:58 by Kadie Raymundo) Diarrhea (Acute) Abdominal pain (Acute) GI bleed (Chronic) Social History Smoking/Tobacco Use Status: Current every day Tobacco Type: cigarettes Smoking risk assessment performed?: Yes Alcohol Intake: never Substance use type: does not use Do you feel safe at home: Yes Do you feel safe in your relationship?: Yes Exam Narrative Exam Narrative: Constitutional: Alert and oriented x3. Appears stated age. Normal body habitus. Head: Normocephalic, no trauma. Eyes: Pupils PERRL, Red reflex noted, EOM's intact. Eyelids symmetrical without lesions, discharge, or swelling. ENT: Bilateral TM's WNL, External ear normal to inspection, no mastoid TTP, swelling, or erythema, Nasal turbinates WNL, no nasal discharge. Normal dentition, Posterior pharynx WNL, no exudate. Chest: RRR, Normal S1, S2, distal pulses intact. Resp: Lungs clear to auscultation bilaterally, no wheezes, rales, or rhonchi. Abdomen: Soft, non-distended, diminished bowel sounds all 4 quads. Generalized guarding all 4 quadrants. Musculoskeletal: Normal gait, 5/5 strength to all four extremities. Skin: No suspicious rashes or lesions. Capillary refill less than 2 sec. Neurologic: Cranial nerves II-XII intact. Alert and oriented x 3. Motor: No deficits noted. Sensory: Intact bilaterally all 4 extremities. Reflexes: DTR's intact bilaterally.. Hematologic/Lymphatic: No ecchymosis, no lymphadenopathy. Course Vital Signs Vital signs: Vital Signs Temperature 36.6 C 02/21/22 12:45 Pulse 69 02/21/22 12:45 Respiratory Rate 16 02/21/22 12:45 Blood Pressure 125/74 02/21/22 12:45 Pulse Oximetry 98 02/21/22 12:45 Temperature 36.6 C 02/21/22 12:45 Temperature Source Skin 02/21/22 12:45 Pulse 69 02/21/22 12:45 Respiratory Rate 16 02/21/22 12:45 Respiratory Effort 02/21/22 12:58 Blood Pressure 125/74 02/21/22 12:45 Blood Pressure Position Sitting 02/21/22 12:45 Pulse Oximetry 98 02/21/22 12:45 Oxygen Delivery Method Room Air 02/21/22 12:45 Oxygen Flow Rate 0 02/21/22 12:45 Pain Level 1 02/21/22 12:45 Comment 02/21/22 12:45 PAWSS Have you Been Recently Intoxicated or Drunk Within the Last 30 days?: No Have you Ever Experienced Previous Episodes of Alcohol Withdrawal?: No Have you ever Experienced Withdrawal Seizures?: No Have you ever Experienced Delirium Tremens(DT)s?: No Have you ever undergone Alcohol Rehabilitation Treatment (i.e, inpt ot outpatient treatment programs)?: No Have you ever Experienced Blackouts?: No Have you ever Combined Alcohol with other Downers within the last 90 days?: No Have you ever Combined Alcohol with any other Substance of Abuse during the last 90 days?: No Positive Blood Alcohol level on Presentation? [PCS.BAL]: No Evidence of Increased Autonomic Activity (i.e. HR>120, tremor, sweating, agitation, nausea)?: No Result: 0
[2022-02-21 13:43] LABS: Abs Immature Grans 0.04 10^3/uL (0.0-0.06); Absolute Basophil Count 0.04 10^3/uL (0.0-0.2); Absolute Lymphocyte Count 1.35 10^3/uL (1.2-3.4); Absolute Monocyte Count 0.61 10^3/uL (0.1-0.8); Basophils % 0.3; Eosinophils % 1.8; HCT 38.5 % (40.0-50.0); HGB 12.8 g/dL (13.5-17.5); Immature Grans % 0.3; Lymphocytes % 11.3; MCHC 33.2 % (32.0-36.0); MCV 93.2 fL (80-95); MPV 10.2 fL (8.0-11.0); Monocytes % 5.1; Neutrophils % 81.2; Nucleated RBC 0 %; Platelet Count 221 10^3/uL (130-400); RBC 4.13 10^6/uL (4.36-5.78); RDW 13.5 % (11.8-14.1); RDW-SD 46.1 fL; WBC 11.94 10^3/uL (4.4-10.8)
[2022-02-21 13:44] LABS: Absolute Eosinophil Count 0.21 10^3/uL (0.0-0.7)
--- NOTE | 2022-02-21 13:45 | DI.CT_ITS ---
Exam(s) CT CHEST PE ABD PELVIS W EXAM: CT CHEST PE ABD PELVIS W CLINICAL HISTORY: GI bleed, chest pain, abdominal pain. TECHNIQUE: Imaging Protocol: Axial CT angiography was performed with multi-slice acquisition and m ulti-planar and/or 3D reconstructions. CONTRAST MATERIAL: Intravenous: Omnipaque 350 Contrast volume:100 ml Oral: None COMPARISON: CT CT ABDOMEN PELVIS W from 02/11/2022 FINDINGS: CHEST: PULMONARY ARTERIES: There are no intra-arterial filling defects to suggest the presence of acute pulm onary emboli. LUNGS: There is no evidence of pulmonary infarction.Mild dependent markings in the lung bases. There are no pleural effusions. MEDIASTINUM: There is no hilar nor mediastinal adenopathy. Visualized thyroid unremarkable. CARDIAC: Sternotomy wires. Heart size normal. Coronary artery calcification noted. There is no per icardial effusion. The caliber thoracic aorta is within normal limits. No evidence of dissection. OSSEOUS: No significant osseous lesions.. ABDOMEN: There is no ascites. LIVER: Hepatic cysts are again noted, also probable small hemangioma in the right hepatic lobe adjace nt to the gallbladder fossa. GALLBLADDER/BILIARY: No obvious gallbladder pathology. CBD is not dilated. PANCREAS: There is a tiny parenchymal calcification in the uncinate process of the pancreas and anoth er similar calcification in the body of the pancreas. No evidence of pancreatic mass nor dilatation of the pancreatic duct. No peripancreatic streaking. SPLEEN: Spleen is not enlarged. There are no intrasplenic lesions. Splenic and portal veins are clark nt. ADRENALS: There are no significant adrenal masses. KIDNEYS:Benign cysts are again noted in the kidneys. Largest of these is in the right kidney and salvador sures 3.6 by 3.4 cm. There are no solid renal masses. No calculi. No hydronephrosis. No hydrouret er. No obvious abnormality in the urinary bladder. ABDOMINAL AORTA: Heavily calcified and again noted is a fusiform infrarenal abdominal aortic aneurysm which exhibits maximum diameter of 3 cm, unchanged. The arterial megaly does not continue into the heavily calcified common iliac arteries. LYMPH NODES: There is no retroperitoneal or para-aortic adenopathy. ABDOMINAL WALL/GI: No evidence of significant anterior abdominal wall hernia. No bowel obstruction. PELVIS: LYMPH NODES: There is no intrapelvic nor inguinal adenopathy. GI: No evidence of appendicitis.No evidence of sigmoid diverticulitis. URINARY BLADDER: No calculi nor masses evident REPRODUCTIVE: Prostate gland is not enlarged OSSEOUS: No significant osseous lesions. Advanced disc space narrowing at L5-S1 and L4-5 levels and there is also anterolisthesis L5 upon S1 d ue to bilateral pars defects at L5 level. IMPRESSION: 1. No evidence of acute pulmonary emboli nor pulmonary infarction. 2. There are no pleural effusions.Mild increased markings in the dependent aspects of the lung bases. 3. Atherosclerotic abdominal aorta with a fusiform infrarenal abdominal aortic aneurysm with maximum external diameter of 3 centimeters again noted. 4. Benign cysts in the kidneys and liver again noted. No solid renal masses. No calculi. No hydron ephrosis. 5. 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 Also advanced dis c space narrowing at this level as well as at L4-5 RADIATION DOSE DELIVERED: 1,514.21mGy.cm Total DLP DATA REPOSITORY: All CT scans at this facility are submitted to the National Radiology Data Registry (NRDR) Dose Index Registry (DIR) with the [employer] (ACR). RADIATION OPTIMIZATION: All CT scans at this facility use at least one of these dose optimization te chniques: automated exposure control; mA and/or kV adjustment per patient size (includes targeted exa ms where dose is matched to clinical indication); or iterative reconstruction.
[2022-02-21 13:53] LABS: Prothrombin Time 9.7 sec (9.3-11.0)
[2022-02-21 13:59] LABS: ALT 31 U/L (16-63); AST 17 U/L (15-37); Albumin 3.2 g/dL (3.4-5.0); Alkaline Phosphatase 67 U/L (46-116); Anion Gap 6.9 mmol/L (3-11); BUN 22 mg/dL (7-18); Bilirubin, Total 0.6 mg/dL (0.2-1.0); CO2 26.1 mmol/L (21.0-32.0); CREATININE 0.9 mg/dL (0.70-1.30); Calcium 8.5 mg/dL (8.5-10.1); Chloride 105 mmol/L (98-107); Glucose 112 mg/dL (74-106); Lipase 57 U/L (73-393); Potassium 4.2 mmol/L (3.5-5.1); Sodium 138 mmol/L (136-145); Total Protein 6.5 g/dL (6.4-8.2); Troponin I < 50 ng/L (<or=60)
[2022-02-21] MEDS: Omnipaque 350 MG/ML 100 ML BTL IJ (14:29)
[2022-02-21] MEDS: Normal Saline 1,000 ML 1000 ML IV (14:50)
[2022-02-21 15:29] LABS: HCT 34.8 % (40.0-50.0); HGB 11.6 g/dL (13.5-17.5); MCH 30.9 pg (27.0-33.0); MCHC 33.3 % (32.0-36.0); MCV 92.6 fL (80-95); MPV 10.2 fL (8.0-11.0); Platelet Count 200 10^3/uL (130-400); RBC 3.76 10^6/uL (4.36-5.78); RDW 13.5 % (11.8-14.1); RDW-SD 45.7 fL; WBC 10.93 10^3/uL (4.4-10.8)
--- NOTE | 2022-02-21 15:58 | W.PM.HP.N ---
Date of service: 02/21/22 Time of Service: 18:00 Assessment and Plan Assessment and plan (1) Gastritis: Status: Acute Assessment and plan: -Likely exacerbated by ASA and meloxicam -IV PPI -Will repeat labs in AM to ensure stability -Possible EGD in AM if continued concern for upper GI bleeding (2) Abdominal pain: Status: Acute (3) GI bleed: Status: Chronic History of Present Illness Narrative: 71 year old male with significant cardiac history presented to the emergency room complaining of abdominal pain and dark colored emesis at home. Patient reports taking meloxicam and aspirin on a daily basis as well as drinking beer which likely contributed to his symptoms. He had basic labs done in the ER with a slight drop in his hemoglobin and I was asked to evaluate the patient for observation on the basis of possible GI bleed. He has never had an upper scope before but does report having a colonoscopy approximately 2 years ago. PFSH All Active Problems (Updated 02/22/22 @ 10:31 by Leandra Bello DO) Gastritis (Acute) Diarrhea (Acute) Abdominal pain (Acute) GI bleed (Chronic) Social History Smoking/Tobacco Use Status: Current every day Tobacco Type: cigarettes Smoking risk assessment performed?: Yes Alcohol Intake: never Substance use type: does not use Do you feel safe at home: Yes Do you feel safe in your relationship?: Yes Meds Allergies and Home Medications Allergies Allergy/AdvReac Type Severity Reaction Status Date / Time Penicillins Allergy Intermediate Hives Unverified 02/21/22 16:53 oxycodone Allergy Unverified 02/21/22 16:53 Home Medications Medication Instructions Recorded Confirmed Type aspirin 81 mg chewable tablet 81 mg PO DAILY 02/09/17 02/21/22 History atenolol 50 mg tablet 50 mg PO DAILY 02/09/17 02/21/22 History fish oil-dha-epa 1,200 mg-144 1 tab PO DAILY 02/09/17 02/21/22 History mg-216 mg capsule meloxicam 7.5 mg tablet 15 mg PO DAILY 02/09/17 02/21/22 History multivitamin (Daily Multi-Vitamin) 1 tab PO DAILY 02/09/17 02/21/22 History nifedipine 30 mg tablet,extended 30 mg PO DAILY 02/09/17 02/21/22 History release 24 hr atorvastatin 80 mg tablet 80 mg PO DAILY 02/11/22 02/21/22 History Exam Const General: cooperative, healthy appearing, comfortable and no acute distress Nutritional Appearance: average body habitus Eyes General: appearance normal, both eyes and all related structures Resp Effort & Inspection: normal respiratory effort, able to speak in complete sentences, no audible wheezes and no respiratory distress Cardio Rate: regular rate Rhythm: regular rhythm GI Inspection: normal to inspection and non-distended Palpation: soft, no guarding and tender in the epigastrum Percussion: normal to percussion Skin General skin exam: no rashes or lesions noted Neuro General: patient alert, patient awake and patient oriented x3 Results Labs Result diagrams: 02/22/22 06:50 02/22/22 06:50 Labs: Laboratory Results - last 24 hr 02/21/22 02/21/22 02/21/22 13:25 13:25 13:25 WBC 11.94 H RBC 4.13 L Hgb 12.8 L Hct 38.5 L MCV 93.2 MCH 31.0 MCHC 33.2 RDW 13.5 Plt Count 221 MPV 10.2 Immature Gran % 0.3 Neutrophils % 81.2 Lymphocytes % 11.3 Monocytes % 5.1 Eosinophils % 1.8 Basophils % 0.3 Nucleated RBC % 0 Absolute Neutrophils 9.70 H Absolute Lymphocytes 1.35 Absolute Monocytes 0.61 Absolute Eosinophils 0.21 Absolute Basophils 0.04 PT 9.7 INR 1.0 Sodium 138 Potassium 4.2 Chloride 105 Carbon Dioxide 26.1 Anion Gap 6.9 BUN 22 H Creatinine 0.9 Estimated GFR/1.73 m2 >= 60.00 Glucose 112 H Calcium 8.5 Magnesium 2.0 Total Bilirubin 0.6 AST 17 ALT 31 Alkaline Phosphatase 67 Troponin I < 50 Total Protein 6.5 Albumin 3.2 L Lipase 57 Patient ABO/Rh Antibody Screen 02/21/22 02/21/22 13:25 15:15 WBC 10.93 H RBC 3.76 L Hgb 11.6 L Hct 34.8 L MCV 92.6 MCH 30.9 MCHC 33.3 RDW 13.5 Plt Count 200 MPV 10.2 Immature Gran % Neutrophils % Lymphocytes % Monocytes % Eosinophils % Basophils % Nucleated RBC % Absolute Neutrophils Absolute Lymphocytes Absolute Monocytes Absolute Eosinophils Absolute Basophils PT INR Sodium Potassium Chloride Carbon Dioxide Anion Gap BUN Creatinine Estimated GFR/1.73 m2 Glucose Calcium Magnesium Total Bilirubin AST ALT Alkaline Phosphatase Troponin I Total Protein Albumin Lipase Patient ABO/Rh O Positive Antibody Screen NEGATIVE Last Vital Signs Temp 98.4 F 02/21/22 14:54 Pulse 58 L 02/21/22 14:54 Resp 16 02/21/22 14:54 BP 139/73 02/21/22 14:54 Pulse Ox 97 02/21/22 14:54 PAWSS Have you Been Recently Intoxicated or Drunk Within the Last 30 days?: No Have you Ever Experienced Previous Episodes of Alcohol Withdrawal?: No Have you ever Experienced Withdrawal Seizures?: No Have you ever Experienced Delirium Tremens(DT)s?: No Have you ever undergone Alcohol Rehabilitation Treatment (i.e, inpt ot outpatient treatment programs)?: No Have you ever Experienced Blackouts?: No Have you ever Combined Alcohol with other Downers within the last 90 days?: No Have you ever Combined Alcohol with any other Substance of Abuse during the last 90 days?: No Positive Blood Alcohol level on Presentation? [PCS.BAL]: No Evidence of Increased Autonomic Activity (i.e. HR>120, tremor, sweating, agitation, nausea)?: No Result: 0
[2022-02-21] MEDS: Pantoprazole 40 MG VIAL IVP (16:50)
[2022-02-21 16:58] LABS: Troponin I < 50 ng/L (<or=60)
[2022-02-21] MEDS: Lactated Ringers 1,000 ML 75 ML IV (17:15)
[2022-02-21 17:38] LABS: COVID-19 PCR Negative (Negative); Influenza A PCR Negative (Negative); Influenza B PCR Negative (Negative); RSV PCR Negative (Negative)
[2022-02-21 17:40] LABS: Source Nasopharynx
[2022-02-22] MEDS: Lactated Ringers 1,000 ML 75 ML IV (06:19)
[2022-02-22 07:39] LABS: Abs Immature Grans 0.02 10^3/uL (0.0-0.06); Absolute Basophil Count 0.04 10^3/uL (0.0-0.2); Absolute Eosinophil Count 0.28 10^3/uL (0.0-0.7); Absolute Lymphocyte Count 1.61 10^3/uL (1.2-3.4); Absolute Monocyte Count 0.63 10^3/uL (0.1-0.8); Basophils % 0.4; Eosinophils % 2.9; HCT 36.8 % (40.0-50.0); HGB 12.2 g/dL (13.5-17.5); Immature Grans % 0.2; Lymphocytes % 16.5; MCHC 33.2 % (32.0-36.0); MCV 93.4 fL (80-95); MPV 10.5 fL (8.0-11.0); Monocytes % 6.4; Neutrophils % 73.6; Nucleated RBC 0 %; Platelet Count 204 10^3/uL (130-400); RBC 3.94 10^6/uL (4.36-5.78); RDW 13.4 % (11.8-14.1); RDW-SD 46.4 fL; WBC 9.78 10^3/uL (4.4-10.8)
[2022-02-22 07:51] VITALS: BP 150/73; PULSE 46; RESP 20; TEMP 36.4; O2SAT 95
[2022-02-22 08:10] LABS: Anion Gap 7.5 mmol/L (3-11); BUN 13 mg/dL (7-18); CO2 26.5 mmol/L (21.0-32.0); CREATININE 0.7 mg/dL (0.70-1.30); Calcium 8.4 mg/dL (8.5-10.1); Chloride 108 mmol/L (98-107); Glucose 99 mg/dL (74-106); Potassium 3.9 mmol/L (3.5-5.1); Sodium 142 mmol/L (136-145)
[2022-02-22] MEDS: Pantoprazole 40 MG VIAL IVP (08:10)
[2022-02-22] MEDS: Normal Saline Flush 10 ML SYR IVP ×2 (08:11→09:57)
--- NOTE | 2022-02-22 10:32 | W.PM.DS.N ---
Date of service: 02/22/22 Time of Service: 09:32 DS: Diagnosis Discharge Diagnosis (1) Gastritis: Status: Acute Asessment and Plan: -Appears significantly improved -Recommend holding ASA and Meloxicam, PO tylenol OK to take for joint pain -Start PO PPI -Outpatient follow up (2) Abdominal pain: Status: Acute (3) GI bleed: Status: Chronic Discharge Plan Disposition Patient Disposition: HOME Condition: Stable Discharge Details Reason For Visit: GI bleed Admit Date/Time: 02/21/22 15:55 Admit Provider: Leandra Bello Attending Provider: Leandra Bello Primary Care Provider: Aquiles Roca Hospital Course Hospital Course: Patient was admitted overnight for observation to ensure clinical improvement in abdominal discomfort and evaluate for possible EGD if symptoms continued. He ultimately recovered and was symptom free by the morning, he was able to tolerate a full breakfast without return of abdominal discomfort and labs have remained stable. Home Meds and New Rx's Prescriptions: New omeprazole 20 mg tablet,delayed release (DR/EC) 20 mg PO DAILY Qty: 30 0RF Continued multivitamin [Daily Multi-Vitamin] 1 EACH tablet 1 tab PO DAILY 0RF nifedipine 30 MG tablet extended release 24hr 30 mg PO DAILY 0RF atenolol 50 MG tablet 50 mg PO DAILY 0RF fish oil-dha-epa 1 EACH capsule 1 tab PO DAILY 0RF atorvastatin 80 mg Tablet 80 mg PO DAILY 0RF Held meloxicam 7.5 MG tablet 15 mg PO DAILY 0RF Hold Instructions: Resume on 03/01/22. Hold for 1 week to see if abdominal discomfort improves, OK to take Tylenol instead Label Comments: not sure of dose. will chicken picker med today. aspirin 81 MG tablet,chewable 81 mg PO DAILY 0RF Hold Instructions: Resume on 03/01/22. Hold medication for 1 week to see if abdominal discomfort improves Discharge Instructions Instructions: Diet for Stomach Ulcers and Gastritis (GEN) Additional Instructions: Return to work in 1 week, 03/03. Referrals: Anu Frias DO [OSTEOPATHIC DOCTOR] - Activity:: Activity as Tolerated Equipment/Supplies:: No Equipment Needed Diet:: avoid spicy/acidic foods Discharge Orders Discharge Orders: Discharge Order (Routine); Ordered 02/22/22 Ordered By: Leandra Bello DS: Summary Time Spent with Patient providing and/or coordinating discharge services: Less than 30 minutes Status at Discharge Functional status at discharge: independent ambulation Overall status at discharge: patient is back to baseline Mental Status: mental status grossly normal Speech and Movement: speech and movement normal Mood: congruent mood Affect: normal affect Exam Psych Mental Status: mental status grossly normal Speech and Movement: speech and movement normal Mood: congruent mood Affect: normal affect DS: Data Vitals/I&O Vitals and I&O: Vital Signs Temperature 97.5 F L 02/22/22 07:51 Temperature Source Skin 02/22/22 07:51 Pulse 46 L 02/22/22 07:51 Pulse Rhythm Regular 02/22/22 09:32 Pulse 71 02/21/22 16:50 Respiratory Rate 20 02/22/22 07:51 Respiratory Effort 02/22/22 09:32 Respiratory Depth Normal 02/22/22 09:32 Respiratory Pattern Normal 02/22/22 09:32 Blood Pressure 150/73 H 02/22/22 07:51 Blood Pressure Mean 88 02/21/22 16:46 Blood Pressure Position Sitting 02/21/22 12:45 Pulse Oximetry 95 02/22/22 07:51 Oxygen Delivery Method Room Air 02/22/22 07:51 Oxygen Flow Rate 0 02/22/22 07:51 Pain Level 2 02/21/22 17:08 Comment 02/21/22 12:45 Intake & Output 02/21/22 02/21/22 02/22/22 11:59 23:59 11:59 Intake Total 1000 / 1000 2480 / 2480 Output Total 750 / 750 1300 / 1300 Balance 250 / 250 1180 / 1180 Weight 190 lb 9 oz Intake: IV 1000 / 1000 2180 / 2180 Oral 300 / 300 Output: Urine 750 / 750 1300 / 1300 Other: Urine Color Yellow Pale Urine Appearance Cloudy Clear Urine Odor Normal None Emesis Description Coffee Grounds Black Voiding Methods Urinal Urinal Data Completed and Pending Labs on day of discharge: Labs from last 24 hours 02/22/22 02/22/22 02/22/22 06:50 06:50 06:50 WBC 9.78 RBC 3.94 L Hgb 12.2 L Hct 36.8 L MCV 93.4 MCH 31.0 MCHC 33.2 RDW 13.4 Plt Count 204 MPV 10.5 Immature Gran % 0.2 Neutrophils % 73.6 Lymphocytes % 16.5 Monocytes % 6.4 Eosinophils % 2.9 Basophils % 0.4 Nucleated RBC % 0 Absolute Neutrophils 7.20 H Absolute Lymphocytes 1.61 Absolute Monocytes 0.63 Absolute Eosinophils 0.28 Absolute Basophils 0.04 PT 10.0 INR 1.0 Sodium 142 Potassium 3.9 Chloride 108 H Carbon Dioxide 26.5 Anion Gap 7.5 BUN 13 D Creatinine 0.7 Estimated GFR/1.73 m2 >= 60.00 Glucose 99 Calcium 8.4 L Magnesium Total Bilirubin AST ALT Alkaline Phosphatase Troponin I Total Protein Albumin Lipase COVID-19 Source SARS-CoV-2 (PCR) Influenza Type A (PCR) Influenza Type B (PCR) RSV (PCR) Patient ABO/Rh Antibody Screen 02/21/22 02/21/22 02/21/22 16:55 16:20 15:15 WBC 10.93 H RBC 3.76 L Hgb 11.6 L Hct 34.8 L MCV 92.6 MCH 30.9 MCHC 33.3 RDW 13.5 Plt Count 200 MPV 10.2 Immature Gran % Neutrophils % Lymphocytes % Monocytes % Eosinophils % Basophils % Nucleated RBC % Absolute Neutrophils Absolute Lymphocytes Absolute Monocytes Absolute Eosinophils Absolute Basophils PT INR Sodium Potassium Chloride Carbon Dioxide Anion Gap BUN Creatinine Estimated GFR/1.73 m2 Glucose Calcium Magnesium Total Bilirubin AST ALT Alkaline Phosphatase Troponin I < 50 Total Protein Albumin Lipase COVID-19 Source Nasopharynx SARS-CoV-2 (PCR) Negative Influenza Type A (PCR) Negative Influenza Type B (PCR) Negative RSV (PCR) Negative Patient ABO/Rh Antibody Screen 02/21/22 02/21/22 02/21/22 13:25 13:25 13:25 WBC 11.94 H RBC 4.13 L Hgb 12.8 L Hct 38.5 L MCV 93.2 MCH 31.0 MCHC 33.2 RDW 13.5 Plt Count 221 MPV 10.2 Immature Gran % 0.3 Neutrophils % 81.2 Lymphocytes % 11.3 Monocytes % 5.1 Eosinophils % 1.8 Basophils % 0.3 Nucleated RBC % 0 Absolute Neutrophils 9.70 H Absolute Lymphocytes 1.35 Absolute Monocytes 0.61 Absolute Eosinophils 0.21 Absolute Basophils 0.04 PT 9.7 INR 1.0 Sodium Potassium Chloride Carbon Dioxide Anion Gap BUN Creatinine Estimated GFR/1.73 m2 Glucose Calcium Magnesium Total Bilirubin AST ALT Alkaline Phosphatase Troponin I Total Protein Albumin Lipase COVID-19 Source SARS-CoV-2 (PCR) Influenza Type A (PCR) Influenza Type B (PCR) RSV (PCR) Patient ABO/Rh O Positive Antibody Screen NEGATIVE 02/21/22 13:25 WBC RBC Hgb Hct MCV MCH MCHC RDW Plt Count MPV Immature Gran % Neutrophils % Lymphocytes % Monocytes % Eosinophils % Basophils % Nucleated RBC % Absolute Neutrophils Absolute Lymphocytes Absolute Monocytes Absolute Eosinophils Absolute Basophils PT INR Sodium 138 Potassium 4.2 Chloride 105 Carbon Dioxide 26.1 Anion Gap 6.9 BUN 22 H Creatinine 0.9 Estimated GFR/1.73 m2 >= 60.00 Glucose 112 H Calcium 8.5 Magnesium 2.0 Total Bilirubin 0.6 AST 17 ALT 31 Alkaline Phosphatase 67 Troponin I < 50 Total Protein 6.5 Albumin 3.2 L Lipase 57 COVID-19 Source SARS-CoV-2 (PCR) Influenza Type A (PCR) Influenza Type B (PCR) RSV (PCR) Patient ABO/Rh Antibody Screen PFSH All Active Problems (Updated 02/22/22 @ 10:31 by Leandra Bello DO) Gastritis (Acute) Diarrhea (Acute) Abdominal pain (Acute) GI bleed (Chronic) Social History Smoking/Tobacco Use Status: Current every day Tobacco Type: cigarettes Smoking risk assessment performed?: Yes Alcohol Intake: never Substance use type: does not use Do you feel safe at home: Yes Do you feel safe in your relationship?: Yes
== END 2022-02-22 11:25 | disposition home or self-care (01) | DRG 379 ==
LOC: ER 15:58 → MS 17:07
PROVIDERS: Admitting Provider Surgery; Emergency Provider Registered Nurse Emergency; PCP Internal Medicine; Visit Provider Surgery
DX: K29.71 Gastritis, unspecified, with bleeding (principal); F17.210 Nicotine dependence, cigarettes, uncomplicated; Z79.82 Long term (current) use of aspirin; Z79.899 Other long term (current) drug therapy
CPT/HCPCS: 36415; 71275; 74177; 80048; 80053; 83690; 85027; 86850; 86900; 86901; 87637; 93005; 96361; 96374; 99222; 99238; 99284; 99285; 83735; 84484; 85025; 85610; 93010; J3490

== ENCOUNTER 2023-04-12 20:17 | Emergency (ER) | payer MEDICARE, SELFPAY ==
[2023-04-12 20:30] VITALS: BP 130/74; PULSE 72; RESP 18; TEMP 37.1; O2SAT 99
[2023-04-12] MEDS: Erythromycin Ophth Oint 3.5 GM TUBE (21:15)
[2023-04-12] MEDS: Fluorescein STRIPS 100/BOX 1 MG (21:15)
--- NOTE | 2023-04-12 21:17 | W.ED.GENAD ---
Discharge Plan Disposition Patient Disposition: Home Condition: Good Discharge Details Clinical Impression: Abrasion of cornea, right Primary Care Provider: Aquiles Roca ED Provider: Bobby Burrell Home Meds and New Rx's Prescriptions: No Action multivitamin [Daily Multi-Vitamin] 1 EACH tablet 1 tab PO DAILY nifedipine 30 MG tablet extended release 24hr 30 mg PO DAILY meloxicam 7.5 MG tablet 15 mg PO DAILY Hold Instructions: Resume on 03/01/22. Hold for 1 week to see if abdominal discomfort improves, OK to take Tylenol instead Patient Comments: not sure of dose. will seed cone picker med today. aspirin 81 MG tablet,chewable 81 mg PO DAILY Hold Instructions: Resume on 03/01/22. Hold medication for 1 week to see if abdominal discomfort improves atenolol 50 MG tablet 50 mg PO DAILY fish oil-dha-epa 1 EACH capsule 1 tab PO DAILY atorvastatin 80 mg Tablet 80 mg PO DAILY omeprazole 20 mg tablet,delayed release (DR/EC) 20 mg PO DAILY Qty: 30 0RF Discharge Instructions Instructions: Corneal Abrasion (ED) Additional Instructions: At this time you have evidence of a corneal abrasion on your right eye. Please apply the erythromycin ointment every 6-8 hours. Please follow-up closely with the plastic duplicator office Dr. Meyers. If you notice any worsening of your symptoms, or any new symptoms such as vomiting, diarrhea, fever, chills, shortness of breath, chest pain, numbness, weakness, or fainting , please return immediately to the emergency department for reevaluation. Please follow up with your primary care provider as soon as possible for reassessment and reevaluation. As always, it was a pleasure participating in your medical care today. Referrals: [facility] [Outside] Aquiles Roca [Primary Care Provider] - Medical Decision Making 72-year-old male presents today for irritation in his right eye. He does not wear contact lenses. Patient states that about 2 to 3 days ago he noticed irritation in his eye. He has been rubbing it regularly but this has not been improving it, rather it has been worsening. He presents today for further assessment. He denies any grinding of metal, working with wood or chainsaws, or anything else that he recalls that could have gotten into his eye. Pain is made worse when he closes his eyes and moves it around or rubs it. No significant visual changes otherwise. No other complaints at this time. Physical exam shows evidence of conjunctival injection on the right, there is evidence of a corneal abrasion at the center of the eye. No evidence of foreign body on my inspection. No evidence of foreign body on the inversion of the upper and lower lids either. After cycloplegic administration and tetracaine, the patient feels much better. We did give erythromycin ointment for home use. Recommend close follow-up with Dr. Meyers. Referral will be placed. Discussed red flags for which to return. I have extensively reviewed the treatment plan and discharge instructions with the patient. I have addressed all patient concerns at this time. The patient was made aware of what symptoms to monitor for that would warrant a return to the emergency department. Discussed the plan with the patient, they demonstrate verbal understanding and agreement with our assessment and plan at this time. The documentation in this chart was dictated using [employer] dictation software. Please excuse any dictation errors. HPI General Date/Time Provider Initiated Documentation: 04/12/23 20:53. HPI Narrative: 72-year-old male presents today for irritation in his right eye. He does not wear contact lenses. Patient states that about 2 to 3 days ago he noticed irritation in his eye. He has been rubbing it regularly but this has not been improving it, rather it has been worsening. He presents today for further assessment. He denies any grinding of metal, working with wood or chainsaws, or anything else that he recalls that could have gotten into his eye. Pain is made worse when he closes his eyes and moves it around or rubs it. No significant visual changes otherwise. No other complaints at this time. Related Data Home Medications Medication Instructions Recorded Confirmed aspirin 81 mg chewable tablet 81 mg PO DAILY 02/09/17 02/21/22 atenolol 50 mg tablet 50 mg PO DAILY 02/09/17 02/21/22 fish oil-dha-epa 1,200 mg-144 1 tab PO DAILY 02/09/17 02/21/22 mg-216 mg capsule meloxicam 7.5 mg tablet 15 mg PO DAILY 02/09/17 02/21/22 multivitamin (Daily Multi-Vitamin 1 tab PO DAILY 02/09/17 02/21/22 tablet) nifedipine 30 mg tablet,extended 30 mg PO DAILY 02/09/17 02/21/22 release 24 hr atorvastatin 80 mg tablet 80 mg PO DAILY 02/11/22 02/21/22 omeprazole 20 mg tablet,delayed 20 mg PO DAILY #30 tabs 02/22/22 release Previous Rx's Medication Instructions Recorded omeprazole 20 mg tablet,delayed 20 mg PO DAILY #30 tabs 02/22/22 release Allergies Allergy/AdvReac Type Severity Reaction Status Date / Time Penicillins Allergy Intermediate Hives Unverified 04/12/23 20:35 oxycodone Allergy Unverified 04/12/23 20:35 General Stated Complaint: EyeProblem YURI: 4 Review of Systems All systems reviewed & are unremarkable except as noted in HPI and below PFSH All Active Problems Abrasion of cornea, right (Acute) Gastritis (Acute) Social History Smoking/Tobacco Use Status: Current every day Tobacco Type: cigarettes Smoking risk assessment performed?: Yes Alcohol Intake: never Substance use type: does not use Do you feel safe at home: Yes Do you feel safe in your relationship?: Yes Exam Narrative Exam Narrative: 1.Const: Well-nourished, Well-developed, appearing stated age 2.Eyes: PERRL, right-sided conjunctival injection. Peripheral vision intact. No nystagmus. No clinical signs of septal/orbital cellulitis, no proptosis. No hyphema, no signs of trauma around the eye, no periorbital emphysema. No sluggishness of the pupil. No ophthalmoplegia. No afferent pupillary defect. Fluorescein exam is positive for corneal abrasion in the central aspect, no foreign body, negative Nael sign. Visual acuity as documented in chart. 3.ENT: Atraumatic external nose and ears. Moist MM. Neck: Symmetric, trachea midline, No thyromegaly. 4.CVS: +S1/S2, No murmurs or gallops. Peripheral pulses 2+ and equal in all extremities. Brisk capillary refill in all extremities. 5.RESP: Unlabored respiratory effort. Clear to auscultation bilaterally. No wheezes rales or rhonchi 6.GI: Soft, Nontender/Nondistended, No hepatosplenomegaly. No guarding or rebound. 7.MSK: Normocephalic/Atraumatic, Extremities w/o deformity or ttp No cyanosis or clubbing, Normal movement of all extremities 8.Skin: Warm, Dry. No rashes or lesions. 9.Neuro: lean consultant II-XII grossly intact. Sensation grossly intact, no focal neurologic deficits. 10.Psych: (AAO) x3. Appropriate mood and affect Course Vital Signs Vital signs: Vital Signs Temperature 37.1 C 04/12/23 20:30 Pulse 72 04/12/23 20:30 Respiratory Rate 18 04/12/23 20:30 Blood Pressure 130/74 04/12/23 20:30 Pulse Oximetry 99 04/12/23 20:30 Temperature 37.1 C 04/12/23 20:30 Temperature Source Oral 04/12/23 20:30 Pulse 72 04/12/23 20:30 Respiratory Rate 18 04/12/23 20:30 Blood Pressure 130/74 04/12/23 20:30 Blood Pressure Position Sitting 04/12/23 20:30 Pulse Oximetry 99 04/12/23 20:30 Oxygen Delivery Method Room Air 04/12/23 20:30 Oxygen Flow Rate 0 04/12/23 20:30 Pain Level 7 04/12/23 20:30
[2023-04-12] MEDS: Tetracaine 0.5% 4 ML BTL (21:27)
--- NOTE | 2023-04-13 09:59 | NUR.NOTE ---
Nursing Note: Referral faxed to [facility] for corneal abrasion/ to be seen April 14. PRovider note also faxed to [facility].
== END 2023-04-12 21:36 | disposition home or self-care (01) ==
PROVIDERS: Emergency Provider Student in an Organized Health Care Education/Training Program; PCP Internal Medicine
DX: S05.01XA Injury of conjunctiva and corneal abrasion without foreign body, right eye, initial encounter (principal); X58.XXXA Exposure to other specified factors, initial encounter
CPT/HCPCS: 99283